=== PATIENT | female | born 1985 | race Caucasian/White ===

== ENCOUNTER 2017-01-01 09:20 | Inpatient (IN) | payer MEDICAID ==
--- NOTE | ~2017-01-01 | HP ---
Unit #: [id number] #: [id number] Patient: DAVID TAVAREZ [id number] [place] [address] [id number] I MR#: [id number] NAME: DAVID TAVAREZ. ROOM: [facility] Age: 31 Sex: F Admission Date: 01/01/2017 : 1985 Attending Physician: Da Laguna M.D. Admitting Physician: Da Laguna M.D. Primary Care Physician: Natasha Parrish M.D. HISTORY AND PHYSICAL HISTORY OF PRESENT ILLNESS David is a 31 year old admitted to [facility] because of her drug use. She snorts heroin. PAST MEDICAL HISTORY Long history of opioid abuse to include snorting heroin PAST SURGICAL HISTORY Left ankle. ALLERGIES No known drug allergies. SOCIAL HISTORY Smokes less than one pack per day. Denies alcohol. Admits to a history of opioid abuse to include snorting heroin. FAMILY HISTORY Medically noncontributory. REVIEW OF SYSTEMS CONSTITUTIONAL: No fever or chills. HEENT: Denies any sore throat, ear pain or runny nose. CARDIOVASCULAR: Denies chest pain, irregular heart rhythm or palpitations. CHEST: Denies shortness of breath or cough. No hemoptysis. GASTROINTESTINAL: Denies nausea, vomiting, diarrhea or chronic constipation. ENDOCRINE: Denies history of increased thirst or urination. No recent significant weight loss or gain. GENITOURINARY: Denies dysuria, frequency, or hematuria. SKIN: Denies any rashes. HEMATOLOGIC: Denies history of increased bleeding or bruising. MUSCULOSKELETAL: Denies any hot, swollen joints. No generalized muscle pain. NEUROLOGIC: Denies problems with vision or speech. No frequent, severe headaches. No numbness, tingling or weakness in any extremities. Denies loss of bladder or bowel control. CURRENT MEDICATIONS Detox protocol PHYSICAL EXAMINATION Unit #: [id number] #: [id number] Patient: DAVID TAVAREZ GENERAL: Alert, well-nourished, in no apparent distress. VITAL SIGNS: Blood pressure 130/70, heart rate 80, respirations 16, temperature 98.6. WEIGHT: 137 pounds. HEIGHT: 5'7". SKIN: Warm and dry without rash or lesion. HEENT: Normocephalic. TMs not viewed. Oral and nasal passages clear. Conjunctivae clear. Pupils equal, round and reactive to light and accommodation. Extraocular movements intact. NECK: Supple without lymphadenopathy or thyromegaly. HEART: Regular rate and rhythm without murmur. LUNGS: Clear. ABDOMEN: Soft, nontender. : Not done. EXTREMITIES: No evidence of cyanosis, clubbing or edema. Moves all extremities without focal deficit. NEUROLOGICAL: Grossly within normal limits. Cranial Nerves: II: Visual are intact. III, IV AND : Extraocular movements are intact. Pupils are equal, round and reactive to light. V: Facial sensation is grossly normal. VII: Facial movements and expression are normal. VIII: Auditory acuity grossly intact. IX, X: Uvula is midline. Phonation is normal. XI: Patient shrugs shoulders and turns head normally. XII: Tongue protrudes in the midline. Sensory and Motor Function: Sensory and motor sensation is grossly normal. Motor: moves all extremities well. Coordination: Gait is normal. Deep Tendon Reflexes: Intact. IMPRESSION Psychiatric admission RECOMMENDATIONS PSYCHIATRIC: Per psychiatrist. MEDICAL: I see no contraindications to participating in facility's activities. MEDICAL PROGNOSIS Good. MEDICAL CONDITION Stable. Dictated by... Kellee Jordan PArtisAThor. for Aundrea Anderson/kiersten TD: 01/02/2017 05:24 JOB #: [id number] Unit #: [id number] #: [id number] Patient: DAVID TAVAREZ HISTORY AND PHYSICAL Page 1 of 1 X Kellee Jordan HISTORY AND PHYSICAL
--- NOTE | ~2017-01-01 | DS ---
Unit #: [id number] #: [id number] Patient: DAVID TAVAREZ [id number] [place] [address] [id number] I MR#: [id number] NAME: DAVID TAVAREZ. ROOM: [facility] Age: 31 Sex: F Admission Date: 01/01/2017 : 1985 Discharge Date: 01/03/2017 Attending Physician: Da Laguna M.D. Primary Care Physician: Natasha Parrish M.D. DISCHARGE SUMMARY REASON FOR ADMISSION Dvaid is a 31-year-old woman who reports using benzodiazepines and heroin to excess. She was unable to quantify has been using at least a gram and a half of heroin daily and a good number of illicit benzodiazepines more recently in the recent past. She is currently homeless and unemployed. She was admitted for stabilization. LABORATORY DATA Please see hospital chart. HOSPITAL COURSE David was admitted and placed on the benzodiazepine detox protocol with the addition of Neurontin for opiate detox symptoms. She had an uneventful period of inpatient detox and rapidly cleared from her detox symptoms. She participated partially in psychotherapy groups and activities, but with minimal enthusiasm. On the date of discharge she contracted for safety in the outpatient setting. DISCHARGE DIAGNOSIS AXIS I: Benzodiazepine dependence and opioid dependence. AXIS II: No diagnosis. [place] III: Polysubstance withdrawal, resolved. INSTRUCTIONS The patient will follow up with [facility] chemical dependence resources. DISCHARGE MEDICATIONS None. CONDITION ON DISCHARGE Improved. PROGNOSIS Fair to good. DIET AND ACTIVITY Ad arabella. Dictated by... Da Laguna M.D. MRH/gz Unit #: [id number] #: [id number] Patient: DAVID TAVAREZ TD: 02/06/2017 07:56 JOB #: [id number] DISCHARGE SUMMARY Page 1 of 1 X Da Laguna MD X DISCHARGE SUMMARY
--- NOTE | ~2017-01-01 | A ---
[facility] Nutrition Therapy DATE: 01/02/17 Patient: DAVID TAVAREZ Physician: HARMIC Address: [address] Room/Bed: [address], Zip: [place] [address] Admit Date: 01/01/17 Date of : [birth year] Height: 5 7 Weight: [phone] NUTRITIONAL ASSESSMENT: REASON: UNINTENTIONAL WEIGHT LOSS PATIENT ADMITTED FOR HEROIN DETOX PMH: NONE Anthropometrics: HT: 5'7", WT: 137#, BMI: 21.5, %IBW: 101 Labs: NO LABS AVAILABLE Meds: DESYREL, NEURONTIN, DETOX PROTOCOL Assessment: PATIENT IS A 31 Y/O FEMALE ADMITTED FOR HEROIN DETOX. PATIENT IS CURRENTLY UNEMPLOYED, HOMELESS, SMOKES 1/2 PPD, HAS DAILY HEROIN, BENZOS, AND MARIJUANA USE, AND ALSO USES COCAINE AND ETOH. PER NEEDS ASSESSMENT PATIENT STATED A POOR APPETITE WITH A 60# WEIGHT LOSS OVER LAST SEVERAL MONTHS, AND SHE HAS INSOMNIA (SLEEPING AN AVERAGE OF 2 HOURS/NIGHT). NURSING REPORTS GOOD PO INTAKES. THERE IS NO WEIGHT HX IN [place]. THERE ARE NO SKIN OR GI ISSUES NOTED ATT. PATIENT'S BMI IS WITHIN A HEALTHY RANGE AND SHE IS 101% OF HER IBW. PATIENT IS ON A REGULAR DIET WITH NO CAFFEINE. THIS RD SUSPECTS WEIGHT AND APPETITE WILL STABILIZE AND POSSIBLY INCREASE FOLLOWING DETOX. Dx: UNINTENTIONAL WEIGHT LOSS R/T DETOX, CURRENT CONDITION AEB SELF-REPORTED WEIGHT LOSS AND DECREASED APPETITE, NUTRITIONAL RISK POINT Intervention: REGULAR DIET, MEDS PER MD, DETOX, PSYCH Monitoring, Evaluation and Goals: 1. ADEQUATE PO INTAKES >50% OF MEALS 2. PREVENT, CORRECT MICRO/MACRO NUTRIENT DEFICIENCIES 3. WEIGHT; MAINTAIN CURRENT WEIGHT, PREVENT FURTHER WEIGHT LOSS MONITOR: WEIGHTS, LABS, PO/FLUID INTAKES Recommendations: 1. CONTINUE REGULAR DIET WITH NO CAFFEINE TOLERATED. OFFER SNACKS BETWEEN MEALS. IF PATIENT HAS C/O HUNGER PLEASE ORDER LARGER PORTIONS AND RD WILL APPROVE 2. OBTAIN WEIGHTS ROUTINELY (EVERY 3-4 DAYS) 3. ENCOURAGE ADEQUATE PO AND FLUID INTAKES 4. IF PO INTAKES ARE BELOW 50% OF MEALS PLEASE ORDER ENSURE BID TO PROMOTE ADEQUATE KCAL [facility] Nutrition Therapy DATE: 01/02/17 Patient: DAVID TAVAREZ Physician: HARMIC Address: [address] Room/Bed: [facility], Zip: [place] [address] Admit Date: 01/01/17 Date of : [birth year] Height: 5 7 Weight: [phone] PR[address] IN[address] TO F/U PER PROTOCOL AND PRN R/T PATIENT MILDLY COMPROMISED Respectfully, SAMUEL GERMAN RD, LD Food and Nutritional Services [facility] cc: client file
--- NOTE | ~2017-01-01 | PA ---
Unit #: [id number] #: [id number] Patient: DAVID TAVAERZ [id number] [place] [address] [id number] MR#: [id number] NAME: DAVID TAVAREZ. ROOM: P176 Age: 31 Sex: F Admission Date: 01/01/2017 : 1985 Date of Assessment: 01/02/2017 Attending Physician: Da Laguna M.D. Admitting Physician: Da Laguna M.D. Primary Care Physician: Natasha Parrish M.D. PSYCHIATRIC ASSESSMENT DATE OF SERVICE 01/02/2017. INFORMANTS The patient, considered reliable and OLOP, considered reliable. CHIEF COMPLAINT Heroin abuse. HISTORY OF PRESENT ILLNESS Vernell is a 29-year-old woman, who reports that she is using heroin and "any kind of opioids." She has been using grams of heroin daily, up to 1.5 g for the last year and said she is "sick of it." She denied suicidal ideation, intent, or plan and was admitted for opioid detox. PAST PSYCHIATRIC HISTORY No previous admissions to this or other local facilities. She has no other psychiatric treatment plan. FAMILY PSYCHIATRIC HISTORY The patient's maternal grandmother was hospitalized for unknown psychiatric reasons. SOCIAL HISTORY The patient denies a history of childhood abuse or neglect. She is a heterosexual woman, with a supportive boyfriend. She is a high school graduate, who is currently unemployed and is currently trying to stay with various friends with her boyfriend. PAST MEDICAL HISTORY No chronic medical problems. MEDICATIONS None currently. ALLERGIES No known medication allergies. SUBSTANCE USE HISTORY As noted, the patient has been using opioids to excess. She uses up to 1.5 g of heroin daily with occasional use of cannabis, alcohol, cocaine, and benzodiazepines. Unit #: [id number] #: [id number] Patient: DAVID TAVAREZ MENTAL STATUS EXAMINATION The patient presented as a disheveled woman, appearing older than her stated age. She was cooperative with the examination. Her speech was spontaneous and easily understood. Her musculoskeletal examination was calm. Her mood was irritable with a congruent affect. She was alert and fully oriented. Her memory and concentration were intact. Her thought processes were logical with no active psychosis. She denied suicidal ideation, intent, or plan. Insight and judgment were fair. Fund of knowledge and abstraction, fair. ASSETS AND LIABILITIES The patient knows local resources and presents voluntarily for treatment. Liabilities include difficulty maintaining sobriety, erratic housing, and income. ADMITTING DIAGNOSES AXIS I: Opiate dependence with withdrawal, uncomplicated, F11.23 and benzodiazepine dependence. AXIS II: No diagnosis. AXIS III: Polysubstance withdrawal. AXIS IV: AXIS V: PSYCHIATRIC PLAN The patient was admitted and placed on the benzodiazepine detox protocol with the addition of Neurontin to cover her opioid withdrawal symptoms. She will enroll in dual diagnosis groups and activities, and a physical examination and laboratory studies will be ordered and reviewed. TREATMENT GOALS Establishment of sobriety, improvement in insight, and improvement in coping skills. DISCHARGE PLANNING Follow up with chemical dependence programing in the community. ESTIMATED LENGTH OF STAY 5 days. Dictated by... Da Laguna M.D. ESTELITA/hawk TD: 02/05/2017 12:38 JOB #: [id number] Unit #: [id number] #: [id number] Patient: DAVID TAVAREZ PSYCHIATRIC ASSESSMENT Page 1 of 1 X Da Laguna MD PSYCHIATRIC ASSESSMENT
== END 2017-01-03 12:00 | DRG 897 ==
LOC: P1E 10:44
PROC: HZ2ZZZZ Detoxification Services for Substance Abuse Treatment (ICD-10-PCS; principal; 2017-01-01)
DX: F11.23 Opioid dependence with withdrawal (principal); F13.20 Sedative, hypnotic or anxiolytic dependence, uncomplicated; F17.210 Nicotine dependence, cigarettes, uncomplicated
CPT/HCPCS: 84703; 86592